=== PATIENT | male | born 1945 | race Caucasian/White ===

== ENCOUNTER 2016-05-28 13:48 | Emergency (ER) | payer MEDICARE ==
[2016-05-28 17:23] VITALS: BP 138/87
[2016-05-28] MEDS ORDERED: ZYLOPRIM PO ONE (23:15)
[2016-05-28] MEDS ORDERED: TORADOL IM ONE (23:15)
--- NOTE | 2016-05-28 23:15 | Emergency Department Report ---
ED Lower Extremity HPI - General Chief Complaint: Wound/Laceration Stated Complaint: GOUT Time Seen by Provider: 05/28/16 23:09 Source: patient Mode of arrival: Ambulatory Limitations: No Limitations - History of Present Illness Initial Comments: 71-year-old Bengali male accompanied with his son present to emergency room with c/o right big toe swelling and redness and pain. Patient stated a history of gout in the same toe foe many years. He is not taking any medication currently for his gout. His symptoms started yesterday. He denies any injury to his right foot or toe. MD Complaint: foot injury, other (right great toe pain.) -: Gradual (one day) Injury: Toes: Right (great) Type of Injury: other (denies any injury. hx of gout. has not been taking any medications.) - Related Data Previous Rx's Medication Instructions Recorded Last Taken Type HYDROcodone/APAP 5-325 [[place] 1 each PO Q6HR PRN #15 tablet 07/08/14 Unknown Rx 5/325] Indomethacin 50 mg PO Q8H #30 capsule 07/08/14 Unknown Rx predniSONE [Deltasone] 20 mg PO TID #9 tab 07/08/14 Unknown Rx Allopurinol [Zyloprim] 300 mg PO QDAY #10 tablet 05/28/16 Unknown Rx Indomethacin [Indocin] 25 mg PO Q8H #30 capsule 05/28/16 Unknown Rx Allergies Allergy/AdvReac Type Severity Reaction Status Date / Time No Known Allergies Allergy Verified 07/08/14 11:09 ED Review of Systems ROS: Stated complaint: GOUT Other details as noted in HPI Comment: All other systems reviewed and negative Constitutional: denies: chills, fever Eyes: denies: eye pain, eye discharge, vision change ENT: denies: ear pain, throat pain Respiratory: denies: cough, shortness of breath, wheezing Cardiovascular: denies: chest pain, palpitations Endocrine: no symptoms reported Gastrointestinal: denies: abdominal pain, nausea, diarrhea Genitourinary: denies: urgency, dysuria Musculoskeletal: as per HPI, other (right big toe pain, swelling, redness.). denies: back pain, joint swelling, arthralgia Skin: denies: rash, lesions Neurological: denies: headache, weakness, paresthesias Psychiatric: denies: anxiety, depression Hematological/Lymphatic: denies: easy bleeding, easy bruising ED Past Medical Hx - Past Medical History Previous Medical History?: Yes Hx Hypertension: No Hx CVA: No Hx Heart Attack/AMI: No Hx Congestive Heart Failure: No Hx Diabetes: No Hx GERD: No Additional medical history: GOUT - Surgical History Past Surgical History?: No - Family History Family history: no significant - Social History Smoking Status: Never Smoker Substance Use Type: Alcohol - Medications Home Medications: Home Medications Medication Instructions Recorded Confirmed Last Taken Type HYDROcodone/APAP 5-325 [[place] 1 each PO Q6HR PRN #15 tablet 07/08/14 Unknown Rx 5/325] Indomethacin 50 mg PO Q8H #30 capsule 07/08/14 Unknown Rx predniSONE [Deltasone] 20 mg PO TID #9 tab 07/08/14 Unknown Rx Allopurinol [Zyloprim] 300 mg PO QDAY #10 tablet 05/28/16 Unknown Rx Indomethacin [Indocin] 25 mg PO Q8H #30 capsule 05/28/16 Unknown Rx ED Physical Exam - General Limitations: No Limitations General appearance: alert, in no apparent distress - Head Head exam: Present: atraumatic, normocephalic - Eye Eye exam: Present: normal appearance - ENT ENT exam: Present: normal exam, mucous membranes moist - Neck Neck exam: Present: normal inspection - Respiratory Respiratory exam: Present: normal lung sounds bilaterally. Absent: respiratory distress - Cardiovascular Cardiovascular Exam: Present: regular rate, normal rhythm. Absent: systolic murmur, diastolic murmur, rubs, gallop - GI/Abdominal GI/Abdominal exam: Present: soft, normal bowel sounds - Rectal Rectal exam: Present: deferred - Extremities Exam Extremities exam: Present: normal inspection, tenderness - Expanded Lower Extremity Exam Right Hip exam: Present: normal inspection, full ROM Upper Leg exam: Present: normal inspection, full ROM Knee exam: Present: normal inspection, full ROM Lower Leg exam: Present: normal inspection, full ROM Ankle exam: Present: normal inspection, full ROM Foot/Toe exam: Present: tenderness (dorsal aspect right great toe), swelling ( mild at 1st MTP joint). Absent: abrasion, laceration, ecchymosis, deformity, crepidus, dislocation, erythema, amputation, puncture wound, foreign body, tenderness at base of 5th metatarsal, nail avulsion, subungual hematoma Neuro vascular tendon exam: Present: no vascular compromise. Absent: pulse deficit, abnormal cap refill, motor deficit, sensory deficit, tendon deficit Gait: Positive: antalgic (right side) - Back Exam Back exam: Present: normal inspection - Neurological Exam Neurological exam: Present: alert, oriented X3 - Psychiatric Psychiatric exam: Present: normal affect, normal mood - Skin Skin exam: Present: warm, dry, intact, normal color. Absent: rash ED Course Vital Signs 05/28/16 17:20 Temperature 97.6 F Pulse Rate 73 Respiratory 18 Rate Blood Pressure 138/87 O2 Sat by Pulse 100 Oximetry Critical care attestation.: If time is entered above; I have spent that time in minutes in the direct care of this critically ill patient, excluding procedure time. ED Disposition Clinical Impression: Acute gout Qualifiers: Gout site: toe Gout etiology: idiopathic Laterality: right Qualified Code(s): M10.071 - Idiopathic gout, right ankle and foot Disposition: DISCHARGED TO HOME OR SELFCARE Is pt being admited?: No Does the pt Need Aspirin: No Condition: Good Instructions: Acute Gouty Arthritis (ED) Prescriptions: Allopurinol [Zyloprim] 300 mg PO QDAY #10 tablet Indomethacin [Indocin] 25 mg PO Q8H #30 capsule Referrals: PRIMARY CARE, [Primary Care Provider] - 3-5 Days
== END 2016-05-28 23:50 | disposition home or self-care (01) ==
LOC: ED 13:48
DX: M10.071 Idiopathic gout, right ankle and foot (principal)
CPT/HCPCS: 96372; 99282; J1885